=== PATIENT | female | born 1980 | race African-American/Black ===

== ENCOUNTER 2017-08-31 10:05 | Emergency (ER) | payer MEDICAID ==
[~2017-08-31] VITALS: Ht 160 cm; Wt 55.8 kg
[2017-08-31 10:07] VITALS: BP 130/76
[2017-08-31] MEDS ORDERED: PREN-234 PO (10:15)
--- NOTE | 2017-08-31 10:16 | NUR ---
PATIENT TO ER BED 12
--- NOTE | 2017-08-31 10:23 | NUR ---
36/F BIB SELF FOR VAGINAL BLEEDIN THIS AM. 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 STS SHE IS UNSURE OF GESTATION. STS WAS SEEN HERE LAST WEEK FOR VOMITING, RX ZOFRAN. AX: DENIES. HX: A0 L1; DENIES N/V/D; SKIN IS PINK/WARM/DRY; AAOX4 WITH EVEN AND STEADY GAIT; LUNGS CLEAR BL; HR EVEN AND REGULAR; PT DENIES ANY FEVER, CP, SOB, OR COUGH AT THIS TIME; PATIENT STATES PAIN OF 0/10 AT THIS TIME; VSS; PATIENT POSITIONED FOR COMFORT; HOB ELEVATED; BEDRAILS UP X2; BED DOWN. ER MD MADE AWARE OF PT STATUS.
[2017-08-31 10:36] LABS: EOSINOPHILS # (AUTO) 0.2 K/uL (0-0.4); RED BLOOD CELL COUNT(AUTO) 4.63 MIL/uL (4.20-5.40); RED CELL DISTRIBUTION WIDTH 12.3 % (11.6-13.7)
[2017-08-31 10:38] LABS: APPEARANCE,URINE CLEAR (CLEAR); BILIRUBIN,URINE 1+ (NEGATIVE); BLOOD, URINE 2+ (NEGATIVE); COLOR,URINE YELLOW (YELLOW); LEUKOCYTE ESTERASE ,URINE NEGATIVE (NEGATIVE); NITRITE, URINE NEGATIVE (NEGATIVE); UGLUCOSE NEGATIVE (NEGATIVE)
[2017-08-31 10:39] LABS: BASOPHILS # (AUTO) 0.2 K/uL (0.00-0.22); BASOPHILS % (AUTO) 3.6 % (0.0-2.0); HEMATOCRIT 40.3 % (36-48); HEMOGLOBIN 13.7 g/dL (12.0-16.0); LYMPHOCYTES # (AUTO) 1.2 K/uL (2.5-16.5); LYMPHOCYTES % (AUTO) 22.6 % (20.5-51.1); MEAN CORPUSCULAR HEMOGLOBIN 30 pg (27-31); MEAN CORPUSCULAR HGB CONC 34 g/dL (33-37); MEAN CORPUSCULAR VOLUME 87 fL (80-94); MONOCYTES # (AUTO) 0.4 K/uL (0.8-1.0); MONOCYTES % (AUTO) 8.5 % (1.7-9.3); NEUTROPHILS # (AUTO) 3.2 K/uL (1.8-7.7); NEUTROPHILS % (AUTO) 61.3 % (42.2-75.2); PLATELET COUNT (AUTO) 362 K/uL (140-450); WHITE BLOOD COUNT (AUTO) 5.2 K/uL (4.8-10.8)
[2017-08-31 11:23] LABS: RBC,URINE 3-10 (FEW) /HPF (0-5); WBC,URINE 0-5 (RARE) /HPF (0-5)
[2017-08-31 11:40] VITALS: BP 127/70
--- NOTE | 2017-08-31 11:40 | NUR ---
Patient discharged with v/s stable. Written and verbal after care instructions given and explained. Patient verbalized understanding. Ambulatory with steady gait. All questions addressed prior to discharge. Advised to follow up with PMD.
== END 2017-08-31 11:40 | disposition home or self-care (01) ==
LOC: MED 10:05
DX: O20.0 Threatened abortion (principal); Z3A.09 9 weeks gestation of pregnancy; F12.10 Cannabis abuse, uncomplicated
CPT/HCPCS: 36415; 81001; 81025; 84702; 85025; 99284

== ENCOUNTER 2018-12-16 17:14 | Emergency (ER) | payer MEDICAID ==
[~2018-12-16] VITALS: Ht 160 cm; Wt 68.0 kg
[~2018-12-16 17:14] MED LIST: PREN-234 PO
[2018-12-16 17:31] VITALS: BP 146/87
--- NOTE | 2018-12-16 17:38 | NUR ---
c/o right ankle pain s/p falling down stairs last sunday. ankle appears swollen and tender to touch. pt unable to put weight on right foot. pain 01/13. hx: htn. PATIENT POSITIONED FOR COMFORT; RIGHT LEG ELEVATED; BEDRAILS UP X2; BED DOWN. ER MD MADE AWARE OF PT STATUS.
[2018-12-16 18:29] VITALS: BP 123/76
== END 2018-12-16 18:29 | disposition home or self-care (01) ==
LOC: MED 17:14
DX: S93.401A Sprain of unspecified ligament of right ankle, initial encounter (principal); Z79.899 Other long term (current) drug therapy; X50.1XXA Overexertion from prolonged static or awkward postures, initial encounter; Y93.89 Activity, other specified; Y92.89 Other specified places as the place of occurrence of the external cause; Y99.8 Other external cause status
CPT/HCPCS: 73610; 99283; Q0092